=== PATIENT | male | born 1945 | race Hispanic/Latino ===

== ENCOUNTER → 2017-02-13 | Day surgery (SDC) | payer MEDICARE ==
[~2017-02-13] MED LIST: ALBUTEROL/IPRATROPIUM 3 ML NEB ONE; AMLODIPINE BESYL5 MG PO; AMOXICILLIN500 MG PO; ATORVASTATIN CA20 MG PO; CLARITHROMYCIN500 MG PO; EPINEPHRINE HCL INJ 1 MG/ML AMP ONE; FENTANYL CITRATE/PF 100MCG/2 ML INJ ONE; LIDOCAINE HCL 2% LOCAL INJ 5 ML SDV VIAL INJ ONE; LIDOCAINE HCL 4% 50 ML BTL ONE; LIDOCAINE JELLY 2% 10ML URO-JET ONE; METRONIDAZOLE500 MG PO; MIDAZOLAM HCL 2 MG/2 ML VIAL ONE; NEXIUM40 MG PO; OXYMETAZOLINE HCL 0.05% NAS 1 SPRAY BTL ONE; PROPOFOL IV EMULSION 10 MG/ML 20 ML VIAL ONE; SERTRALINE HCL100 MG PO
--- NOTE | 2017-02-13 09:52 | Diagnostic Imaging Report ---
PROCEDURE: CT CHEST WITHOUT CONTRAST CT scan of the chest WITHOUT intravenous contrast, using standard protocol. TECHNIQUE: The chest was scanned utilizing a multidetector helical scanner from the apex to the level of the adrenal glands. No IV contrast was administered because of referring physician request. Coronal and sagittal multiplanar reformations were obtained. COMPARISON: None. INDICATIONS: ABNORMAL CHEST XRAY FINDINGS: Lines/tubes: None. Lungs and Airways: Biapical fibrotic changes with architectural distortion and nodularity, extending to the pleural surfaces. Associated biapical pleural thickening, left greater than right with upward hilar retraction. 5 mm noncalcified nodule in the lateral segment of the left lower lobe seen on series 3 image 63. Scattered juxtapleural reticulation most notably anteriorly within the right middle lobe. Biapical bronchiectasis. No filling defects within the central bronchi. Pleura: The pleural spaces are clear. Heart and mediastinum: The visualized portions of the thyroid gland appear normal. Calcified mediastinal and right hilar lymph nodes. Normal heart size. Mild calcifications of the aortic arch. No ectasia or aneurysmal dilatation. No pericardial effusion. Soft tissues: No focal soft tissue abnormalities. Abdomen: Visualized portions of the liver, spleen, pancreas, and adrenal glands are normal. Bones: No osseous destructive lesions. Multilevel degenerative disc changes of the lower cervical and thoracic spine. 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 No consolidations or tree in bud nodularity to suggest active granulomatous disease. 5 mm noncalcified nodule laterally within the left lower lobe should be assessed for stability by CT scan of the chest without contrast in one year. Atherosclerotic vascular disease. Dictated by: Samy Thakkar M.D. on 02/13/2017 at 10:01 Electronically approved by: Samy Thakkar M.D. on 02/13/2017 at 10:01
--- NOTE | 2017-02-13 21:14 | Operative Report ---
DATE OF PROCEDURE: February 13, 2017 PROCEDURE PERFORMED: Bronchoscopy with bronchoalveolar lavage. PREPROCEDURE DIAGNOSIS: Abnormal chest x-ray and CT chest. POSTPROCEDURE DIAGNOSIS: Abnormal chest x-ray and CT chest. ANESTHESIA: Patient is on propofol and mechanical ventilator in ICU. PROCEDURE IN DETAIL: The bronchoscope was advanced through the LMA. Both lungs were examined to segmental levels. No endobronchial lesions were seen. Bronchoalveolar lavage was done from right middle lobe and left upper lobe. BAL was sent for gram stain, culture and ARB. The patient tolerated the procedure well. Discharge instructions were given. The patient can be discharged home after the procedure. Job#: [id number]
--- NOTE | 2017-02-18 14:47 | Pulmonary Function Test ---
DATE OF STUDY: This is a patient of Dr. Malinda Raya and Dr. Maurice Sequeira. Moderately severe obstructive pulmonary disease. Forced vital capacity is 2.74 L, 73% of predicted. FEV1 is 1.5 L, 53%. FEV1:FVC ratio is 55%. FEF 25-75 is 48%. There was significant improvement following inhalation of bronchodilators to near normal. Forced vital capacity increased to 3.14 L, 84% of predicted, a 15% improvement. FEV1 increased to 2.12 L, 45% of predicted, 41% of predicted. FEV1:FVC ratio 68%. FEF 25-75 was 1.54 L, 67% of predicted, a 37% improvement. Findings are consistent with moderately severe obstructive pulmonary disease. Diffusion capacity is reduced to 16.51, 63% of predicted, suggesting loss of alveolar units or ventilation-perfusion imbalance. Total lung capacity is preserved at 5.31, 85% of predicted. Findings are consistent with moderately severe obstructive pulmonary disease with improvement to near normal following inhalation of bronchodilators. Reduction in diffusion capacity suggests this is obstructive disease rather than bronchial asthma. Job#: [id number]
== END | disposition home or self-care (01) ==
LOC: CT 08:21 → OR 09:40 → EDSTATUS 11:00
PROVIDERS: ATTEND Internal Medicine
DX: Z00.01 Encounter for general adult medical examination with abnormal findings (principal); J44.9 Chronic obstructive pulmonary disease, unspecified; I10 Essential (primary) hypertension; Z87.891 Personal history of nicotine dependence
CPT/HCPCS: 31624; 71250; 87116; 87205; 87206; 87335; 94060; 94727; 94729; J2001; J2250; 31623; J0171

== ENCOUNTER → 2021-10-26 | Day surgery (SDC) | payer MEDICARE ==
[2021-10-24 16:02] LABS: BASOPHILS % 0.5 % (0.0-1.0); EOSINOPHILS % 0.5 % (0.0-6.0); HEMATOCRIT 46.5 % (38.2-49.6); HEMOGLOBIN 15.7 g/dL (14.0-18.0); LYMPHOCYTES # (AUTO) 1.5 (1.0-3.2); LYMPHOCYTES % 20.5 % (18.0-39.1); MEAN CORPUSCULAR HEMOGLOBIN 29.7 pg (28-32); MEAN CORPUSCULAR HGB CONC 33.8 g/dL (31-35); MEAN CORPUSCULAR VOLUME 87.9 fL (81-99); MONOCYTES # (AUTO) 0.5 (0.2-0.8); MONOCYTES % 6.6 % (4.4-11.3); NEUTROPHILS # (AUTO) 5.3 (2.1-6.9); NEUTROPHILS % 71.6 % (38.7-80.0); PLATELET COUNT 195 x10e3/uL (140-360); RED BLOOD COUNT 5.29 x10e6/uL (4.3-5.7); RED CELL DISTRIBUTION WIDTH 13.6 % (11.7-14.4)
[~2021-10-26] MED LIST changes: -ALBUTEROL/IPRATROPIUM 3 ML NEB ONE; +CRESTOR10 MG PO; -EPINEPHRINE HCL INJ 1 MG/ML AMP ONE; +FLOMAX0.4 MG PO; +HYOSCYAMINE SULFATE 0.5 MG/ML INJ ONE; -LIDOCAINE HCL 4% 50 ML BTL ONE; -LIDOCAINE JELLY 2% 10ML URO-JET ONE; -OXYMETAZOLINE HCL 0.05% NAS 1 SPRAY BTL ONE; +PHENYLEPHRINE HCL 1% 10 MG/ML VIAL ONE
[2021-10-26 13:10] VITALS: BP 116/75
== END | disposition home or self-care (01) ==
LOC: OR 10:18
PROVIDERS: ATTEND Internal Medicine Gastroenterology
DX: Z12.11 Encounter for screening for malignant neoplasm of colon (principal); D12.5 Benign neoplasm of sigmoid colon; D12.8 Benign neoplasm of rectum; K57.30 Diverticulosis of large intestine without perforation or abscess without bleeding; K64.8 Other hemorrhoids; K21.9 Gastro-esophageal reflux disease without esophagitis; Z71.3 Dietary counseling and surveillance; I10 Essential (primary) hypertension; E66.9 Obesity, unspecified; F32.A Depression, unspecified; Z01.812 Encounter for preprocedural laboratory examination; Z79.899 Other long term (current) drug therapy; Z68.29 Body mass index [BMI] 29.0-29.9, adult; Z85.528 Personal history of other malignant neoplasm of kidney; Z90.5 Acquired absence of kidney
CPT/HCPCS: 36415; 45380; 45385; 85025; J1980; J2001; J2250; J2370; J2704; J3010; 45378

== ENCOUNTER 2023-08-06 07:24 | Emergency (ER) | payer MEDICARE ==
[~2023-08-06] VITALS: Ht 172.7 cm; Wt 99.8 kg
[~2023-08-06 07:24] MED LIST changes: +AZOR 5-20 MG T1 EACH PO; -FENTANYL CITRATE/PF 100MCG/2 ML INJ ONE; -HYOSCYAMINE SULFATE 0.5 MG/ML INJ ONE; -LIDOCAINE HCL 2% LOCAL INJ 5 ML SDV VIAL INJ ONE; -MIDAZOLAM HCL 2 MG/2 ML VIAL ONE; +OMEGA 3 1,0001 EACH PO; -PHENYLEPHRINE HCL 1% 10 MG/ML VIAL ONE; -PROPOFOL IV EMULSION 10 MG/ML 20 ML VIAL ONE; +SODIUM BICARBO650 MG PO; +ZETIA10 MG PO
[2023-08-06 07:27] VITALS: PULSE 81; RESP 18; TEMP 98.1; O2SAT 96
[2023-08-06] MEDS ORDERED: ACETAMINOPHEN 325 MG TAB ONE (09:07)
[2023-08-06] MEDS: ACETAMINOPHEN 325 MG TAB PO ONE (09:09)
== END 2023-08-06 09:15 | disposition home or self-care (01) ==
LOC: ER 07:40
DX: T14.8XXA Other injury of unspecified body region, initial encounter (principal); M54.2 Cervicalgia; I10 Essential (primary) hypertension; E78.5 Hyperlipidemia, unspecified; K21.9 Gastro-esophageal reflux disease without esophagitis; N40.0 Benign prostatic hyperplasia without lower urinary tract symptoms; V49.49XA Driver injured in collision with other motor vehicles in traffic accident, initial encounter; W22.11XA Striking against or struck by driver side automobile airbag, initial encounter; Y92.410 Unspecified street and highway as the place of occurrence of the external cause; Z79.899 Other long term (current) drug therapy
CPT/HCPCS: 70450; 72125; 99283

== ENCOUNTER 2024-09-22 13:12 | Inpatient (IN) | payer MEDICARE ==
[~2024-09-22] VITALS: Ht 172.7 cm; Wt 86.2 kg
[2024-09-22] MEDS ORDERED: ONDANSETRON HCL INJ 2MG/ML 2ML 2 MG/ML VIAL IV STA (13:32)
[2024-09-22] MEDS ORDERED: ACETAMINOPHEN 325 MG TAB ONE (13:40)
[2024-09-22] MEDS: ACETAMINOPHEN 325 MG TAB PO ONE (14:08)
[2024-09-22] MEDS: SODIUM CHLORIDE 0.9% 1000ML 1,000 ML IV STA ×2 (14:08→16:11)
[2024-09-22 14:15] LABS: BASOPHILS % 0.3 % (0.0-1.0); EOSINOPHILS % 0.4 % (0.0-6.0); LYMPHOCYTES % 5.4 % (18.0-39.1); MONOCYTES % 6.9 % (4.4-11.3); NEUTROPHILS % 86.6 % (38.7-80.0); RED CELL DISTRIBUTION WIDTH 14.5 % (11.7-14.4)
[2024-09-22 14:29] LABS: INR 1.04; LEUKOCYTE ESTERASE ,URINE NEGATIVE (NEGATIVE); PROTEIN,URINE DIPSTICK 2+ (NEGATIVE); URINE UROBILINOGEN >=8 mg/dL (0.2 - 1)
[2024-09-22 14:34] LABS: CORONAVIRUS COVID-19 AG NEGATIVE (NEGATIVE)
[2024-09-22 14:39] LABS: EST GLOMERULAR FILTRATION RATE 56 ML/MIN (>=60)
[2024-09-22] MEDS: IBUPROFEN 600 MG TAB PO STA (18:16)
[2024-09-22] MEDS ORDERED: ONDANSETRON HCL INJ 2MG/ML 2ML 2 MG/ML VIAL IV PRN (18:45)
[2024-09-22] MEDS ORDERED: IOPAMIDOL 370 MG/ML 100 ML INFUS..BTL INJ ONE (19:21)
[2024-09-22 19:37] VITALS: PULSE 98; RESP 16; TEMP 100
[2024-09-22] MEDS: ACETAMINOPHEN 1000 MG/100 ML IV SCH (19:42)
[2024-09-22] MEDS: SODIUM CHLORIDE 0.9% 1000ML 1,000 ML IV SCH (19:44)
[2024-09-22 20:28] VITALS: BP 127/72; PULSE 88; RESP 18; TEMP 98.7; O2SAT 95
[2024-09-22 21:55] VITALS: BP 127/72; PULSE 88; RESP 18; TEMP 98.7; O2SAT 95
[2024-09-22 22:27] VITALS: BP 127/72; PULSE 88; RESP 18; TEMP 98.7; O2SAT 95
[2024-09-23] VITALS (7 sets, daily range): BP systolic 101–130; BP diastolic 52–73; PULSE 70–83; RESP 16–22; TEMP 97.6–102.4; O2SAT 91–98
[2024-09-23] MEDS ORDERED: ACETAMINOPHEN 1000 MG/100 ML IV PRN (01:15)
[2024-09-23] MEDS: ACETAMINOPHEN 1000 MG/100 ML IV PRN (06:36)
[2024-09-23 07:59] LABS: BASOPHILS % 0.7 % (0.0-1.0); EOSINOPHILS % 1.1 % (0.0-6.0); LYMPHOCYTES % 4.1 % (18.0-39.1); MONOCYTES % 0.9 % (4.4-11.3); NEUTROPHILS % 92.8 % (38.7-80.0); RED CELL DISTRIBUTION WIDTH 14.7 % (11.7-14.4)
[2024-09-23 08:29] LABS: EST GLOMERULAR FILTRATION RATE 58.0 ML/MIN (>=60)
[2024-09-23 08:41] LABS: CHOL/HDL RATIO 4.3 (3.9-4.7); LDL CHOLESTEROL 97.0 MG/DL (60-130)
[2024-09-23] MEDS ORDERED: SEVOFLURANE INHAL SOLN 250 ML PEN BTL ONE (09:16)
[2024-09-23] MEDS ORDERED: ACETAMINOPHEN 1000 MG/100 ML 100 ML IV ONE (09:16)
[2024-09-23] MEDS ORDERED: LIDOCAINE HCL 2% LOCAL INJ 5 ML SDV VIAL INJ ONE (09:16)
[2024-09-23] MEDS ORDERED: FENTANYL CITRATE/PF 100MCG/2 ML INJ ONE (09:16)
[2024-09-23] MEDS ORDERED: ROCURONIUM BROMIDE 1 ML IV ONE (09:16)
[2024-09-23] MEDS ORDERED: PROPOFOL IV EMULSION 10 MG/ML 20 ML VIAL ONE (09:16)
[2024-09-23 10:47] LABS: BAND NEUTROPHILS % (MANUAL) 1 %; LYMPHOCYTES % (MANUAL) 4 % (19-48); MONOCYTES % (MANUAL) 2 % (3.4-9.0); NEUTROPHILS % (MANUAL) 93 % (40-74)
[2024-09-23 10:48] LABS: PLATELET ESTIMATE ADEQUATE; PLATELET MORPHOLOGY COMMENT NORMAL
[2024-09-23] MEDS ORDERED: SUGAMMADEX SODIUM 200 MG/2 ML VIAL IV ONE (11:04)
[2024-09-23] MEDS: SODIUM CHLORIDE 0.9% 1000ML 1,000 ML IV SCH (11:15)
[2024-09-23] MEDS ORDERED: HYDROCODONE/APAP 5MG-325MG TAB PO PRN (11:15)
[2024-09-23] MEDS: FENTANYL CITRATE/PF 100MCG/2 ML INJ ONE (11:50)
[2024-09-23] MEDS ORDERED: LOKELMA5 GM PO (15:56)
[2024-09-23] MEDS ORDERED: SODIUM BICARBO650 MG PO (15:56)
[2024-09-23] MEDS ORDERED: [UNRECOGNIZED DRUG - OTHER] PO (15:56)
[2024-09-23] MEDS ORDERED: TRAZODONE HCL50 MG PO (15:56)
[2024-09-23] MEDS ORDERED: FAMOTIDINE20 MG PO (15:56)
[2024-09-23] MEDS ORDERED: VITAMIN K PO (15:56)
[2024-09-23] MEDS ORDERED: SPS15 GM/60 M PO (15:56)
[2024-09-24] VITALS (10 sets, daily range): BP systolic 113–141; BP diastolic 51–78; PULSE 83–87; RESP 16–22; TEMP 97.9–98.5; O2SAT 95–100
[2024-09-24] MEDS: Morphine 4mg INJECTION 4 MG/ML INJ IV PRN (05:56)
[2024-09-24] MEDS: ONDANSETRON HCL INJ 2MG/ML 2ML 2 MG/ML VIAL IV PRN (05:56)
[2024-09-24 06:09] LABS: BASOPHILS % 0.1 % (0.0-1.0); EOSINOPHILS % 0.0 % (0.0-6.0); LYMPHOCYTES % 7.6 % (18.0-39.1); MONOCYTES % 5.8 % (4.4-11.3); NEUTROPHILS % 85.8 % (38.7-80.0); RED CELL DISTRIBUTION WIDTH 15.3 % (11.7-14.4)
[2024-09-24 06:44] LABS: EST GLOMERULAR FILTRATION RATE 49.0 ML/MIN (>=60)
[2024-09-24] MEDS: PANTOPRAZOLE SOD 40 MG TABEC PO SCH (07:30)
[2024-09-24] MEDS: SODIUM BICARBONATE 650 MG TAB PO SCH (08:49)
[2024-09-24] MEDS: TAMSULOSIN HCL 0.4 MG CAP PO SCH (08:49)
[2024-09-24] MEDS: EZETIMIBE 10 MG TAB PO SCH (08:51)
[2024-09-24 09:02] LABS: LYMPHOCYTES % (MANUAL) 3 % (19-48); MONOCYTES % (MANUAL) 6 % (3.4-9.0); NEUTROPHILS % (MANUAL) 91 % (40-74); PLATELET ESTIMATE SLIGHTLY DECREASED; PLATELET MORPHOLOGY COMMENT NORMAL; RBC MORPHOLOGY COMMENT NORMAL
[2024-09-25] VITALS: BP 134/74; PULSE 95; RESP 20; TEMP 99.5; O2SAT 94
[2024-09-25] MEDS ORDERED: ULTRAM 50MG50 MG PO (06:13)
[2024-09-25 06:28] LABS: BASOPHILS % 0.3 % (0.0-1.0); EOSINOPHILS % 1.2 % (0.0-6.0); LYMPHOCYTES % 12.6 % (18.0-39.1); MONOCYTES % 7.2 % (4.4-11.3); NEUTROPHILS % 77.9 % (38.7-80.0); RED CELL DISTRIBUTION WIDTH 15.9 % (11.7-14.4)
[2024-09-25 06:45] VITALS: BP 134/74; PULSE 89; RESP 19; TEMP 99.1; O2SAT 100
[2024-09-25 07:07] LABS: EST GLOMERULAR FILTRATION RATE 58.0 ML/MIN (>=60)
[2024-09-25 08:06] VITALS: PULSE 84; RESP 18; O2SAT 96
[2024-09-25 08:35] VITALS: BP 153/74; PULSE 96; RESP 20; TEMP 98; O2SAT 94
[2024-09-25] MEDS ORDERED: LEVOFLOXACIN750 MG PO (10:57)
[2024-09-25] MEDS ORDERED: ONDANSETRON ODT4 MG PO (10:57)
[2024-09-25 12:36] VITALS: BP 139/75; PULSE 85; RESP 20; TEMP 98.4; O2SAT 96
== END 2024-09-25 13:02 | disposition home or self-care (01) | DRG 854 ==
LOC: ER 13:32 → ERHOLD 18:42 → MED/SURG3 20:55
PROVIDERS: ADMIT Internal Medicine; ATTEND Internal Medicine
PROC: 3E0333Z Introduction of Anti-inflammatory into Peripheral Vein, Percutaneous Approach (ICD-10-PCS; 2024-09-22)
PROC: 0FT44ZZ Resection of Gallbladder, Percutaneous Endoscopic Approach (ICD-10-PCS; principal; 2024-09-23 10:19)
DX: A41.51 Sepsis due to Escherichia coli [E. coli] (principal); K80.00 Calculus of gallbladder with acute cholecystitis without obstruction; I12.9 Hypertensive chronic kidney disease with stage 1 through stage 4 chronic kidney disease, or unspecified chronic kidney disease; E78.5 Hyperlipidemia, unspecified; N18.9 Chronic kidney disease, unspecified; K21.9 Gastro-esophageal reflux disease without esophagitis; N40.0 Benign prostatic hyperplasia without lower urinary tract symptoms; R53.81 Other malaise; E86.0 Dehydration; Z11.52 Encounter for screening for COVID-19; Z90.5 Acquired absence of kidney
CPT/HCPCS: 36415; 71045; 74177; 74181; 76705; 80053; 80061; 81001; 82550; 83036; 83690; 83735; 84484; 85025; 85610; 85730; 87040; 87071; 87186; 87205; 88304; 93005; 94760; 94799; 99284; J2003; J2270; J2405; J2470; J2543; J7030; Q9967